=== PATIENT | female | born 2005 | race Caucasian/White ===

== ENCOUNTER 2025-10-11 06:35 | Emergency (ER) | payer SELFPAY ==
[2025-10-11 06:38] VITALS: BP 118/82
[2025-10-11 07:24] VITALS: BMI 25.2
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
[2025-10-11] MEDS: MOTRIN 600 MG PO (09:12)
[2025-10-11 09:17] VITALS: BP 115/63
== END 2025-10-11 09:19 | disposition home or self-care (01) ==
LOC: EMR 06:35
PROVIDERS: EMERGENCY PHYSICIAN Emergency Medicine; FAMILY PHYSICIAN Physician Assistant Medical
DX: S09.90XA Unspecified injury of head, initial encounter (principal); S20.214A Contusion of middle front wall of thorax, initial encounter; V47.0XXA Car driver injured in collision with fixed or stationary object in nontraffic accident, initial encounter; Y92.410 Unspecified street and highway as the place of occurrence of the external cause
CPT/HCPCS: 99283; 71046; 71120; 93005